=== PATIENT | male | born 1995 | race African-American/Black ===

== ENCOUNTER 2021-06-29 09:11 | Emergency (ER) | payer SELFPAY ==
[2021-06-30 10:48] LABS: SARS-CoV-2 PCR by NAA Not Detected (NotDetected)
== END 2021-06-29 09:45 | disposition home or self-care (01) ==
LOC: NAV ERS 09:11
DX: R51.9 Headache, unspecified (principal); Z20.822 Contact with and (suspected) exposure to COVID-19; Z87.891 Personal history of nicotine dependence
CPT/HCPCS: 99284; U0003; U0005

== ENCOUNTER 2021-07-23 12:15 | Emergency (ER) | payer MEDICAID, SELFPAY ==
[2021-07-23] MEDS ORDERED: Ibuprofen 200 MG TAB ONE (12:23)
[2021-07-24 18:23] LABS: SARS-CoV-2 PCR by NAA DETECTED (NotDetected)
== END 2021-07-23 12:48 | disposition home or self-care (01) ==
LOC: NAV ERS 12:15
DX: U07.1 COVID-19 (principal); Z87.891 Personal history of nicotine dependence
CPT/HCPCS: 87804; 99284; U0003; U0005

== ENCOUNTER 2021-08-30 07:49 | Emergency (ER) | payer OTHER, MEDICAID ==
[2021-08-30] MEDS ORDERED: Acetaminophen 500 MG TAB ONE (08:40)
== END 2021-08-30 08:55 | disposition home or self-care (01) ==
LOC: NAV ERS 07:49
DX: S60.041A Contusion of right ring finger without damage to nail, initial encounter (principal); W01.0XXA Fall on same level from slipping, tripping and stumbling without subsequent striking against object, initial encounter; Y92.69 Other specified industrial and construction area as the place of occurrence of the external cause; Z87.891 Personal history of nicotine dependence

== ENCOUNTER 2021-09-13 11:01 | Emergency (ER) | payer MEDICAID | END 2021-09-13 11:34 | disposition home or self-care (01) | LOC: NAV ERS 11:01 | DX: S63.92XA Sprain of unspecified part of left wrist and hand, initial encounter (principal); S63.91XA Sprain of unspecified part of right wrist and hand, initial encounter; S20.212A Contusion of left front wall of thorax, initial encounter; S80.212A Abrasion, left knee, initial encounter; S80.211A Abrasion, right knee, initial encounter; Y04.8XXA Assault by other bodily force, initial encounter; Z87.891 Personal history of nicotine dependence | CPT/HCPCS: 99283 ==

== ENCOUNTER 2022-05-08 01:32 | Emergency (ER) | payer OTHER, SELFPAY | END 2022-05-08 01:59 | LOC: NAV ERS 01:32 | DX: M79.662 Pain in left lower leg (principal); Z87.891 Personal history of nicotine dependence | CPT/HCPCS: 99283 ==

== ENCOUNTER 2022-08-22 09:12 | Emergency (ER) | payer MEDICAID, SELFPAY ==
[2022-08-22 10:08] LABS: Bilirubin Negative (Negative); Blood, Urine Negative (Negative); Clarity Clear (Clear); Glucose, Urine (Dipstick) Negative (Negative); Ketone, Urine Negative (Negative); Leukocyte Negative (Negative); Nitrite Negative (Negative); Protein, Urine (Dipstick) Negative (Neg-Trace); Specific Gravity, Urine 1.025 (1.005-1.030); Urobilinogen 0.2 mg/dL (Less than 2); pH, Urine 7.5 (5.0-9.0)
[2022-08-22] MEDS ORDERED: cefTRIAXone\\ROCEPHIN 500 MG VIAL ONE (10:41)
[2022-08-23 11:26] LABS: Chlam.trachomatis by PCR,Urine Not Detected (NotDetected); GC N.gonorrhoeae PCR,UrineVOID Not Detected (NotDetected)
== END 2022-08-22 11:31 | disposition home or self-care (01) ==
LOC: NAV ERS 09:12
DX: N34.1 Nonspecific urethritis (principal); Z87.891 Personal history of nicotine dependence
CPT/HCPCS: 81003; 87491; 87591; 96372; 99283; J0696

== ENCOUNTER 2024-02-06 14:26 | Emergency (ER) | payer SELFPAY ==
[2024-02-06] MEDS ORDERED: Acetaminophen 500 MG TAB ONE (15:13)
== END 2024-02-06 15:45 | disposition home or self-care (01) ==
LOC: NAV ERS 14:26
DX: S80.02XA Contusion of left knee, initial encounter (principal); Z87.891 Personal history of nicotine dependence; V40.9XXA Unspecified car occupant injured in collision with pedestrian or animal in traffic accident, initial encounter; Y93.01 Activity, walking, marching and hiking; Y92.481 Parking lot as the place of occurrence of the external cause